=== PATIENT | male | born 1950 | race Caucasian/White ===

== ENCOUNTER 2016-12-02 13:13 | Emergency (ER) | payer OTHER ==
[~2016-12-02] VITALS: Ht 180.3 cm; Wt 86.2 kg
[~2016-12-02 13:13] MED LIST: AMLODIPINE BESY10 M1 PO; ASPIRIN EC81 M1 PO; CALCIUM + D SO1 EACH PO; FLOMAX0.4 M1 PO; FOSAMAX PLUS D1 EAC1 PO; KRILL OIL500 MG PO; MULTIPLE VITAM1 EAC2 PO; NASONEX0.05 MG/Ac NAS; NEXIUM 40MG40 MG PO; PREDNISONE10 MG PO; SYMBICORT 80-10.2 GM INH; TESSALON PERLE100 MG PO
--- NOTE | 2016-12-02 13:46 | ED SKIN/ALLERGY COMPLAINT ---
History of Present Illness General Chief Complaint: Dyspnea (COPD, CHF, Other) Stated Complaint: SOB, "ITCHY ALL OVER" Source: patient Exam Limitations: no limitations Vital Signs & Intake/Output Vital Signs & Intake/Output Vital Signs Date Time Temp Pulse Resp B/P Pulse O2 O2 Flow FiO2 Ox Delivery Rate 12/02 1522 97.0 72 18 136/86 98 Room Air Room Air 12/02 1501 96.7 77 18 135/81 97 Room Air 12/02 1316 97.7 119 20 119/78 97 Room Air ED Intake and Output 12/03 0000 12/02 1200 Intake Total Output Total Balance Patient 190 lb Weight Allergies Coded Allergies: Penicillins (Severe, ANAPHYLAXIS 12/02/16) nut - unspecified (RASH 12/02/16) Reconcile Medications Alendronate Sodium/Vitamin D3 (Fosamax Plus D 70 MG-2,800 Iu) 70 MG-2,800 UNIT TABLET 1 TAB PO QSAT BONE (Reported) Amlodipine Besylate (Amlodipine) 10 MG TABLET 1 TAB PO DAILY BP (Reported) Aspirin (Ecotrin) 81 MG TABLET.DR 1 TAB PO DAILY HEART HEALTH (Reported) Budesonide/Formoterol Fumara (Symbicort 80-4.5 Mcg Inhaler) 80 MCG/4.5 MCG PUF 2 PUFF INH BID PRN DYSPNEA (Reported) Calcium/Vitamin D (Calcium + D) (Unknown Strength) TAB (Unknown Dose) PO BID SUPPLEMENT (Reported) Dexlansoprazole (Dexilant) 60 MG CAP.BP 1 CAP PO DAILY GI (Reported) Dutasteride (Avodart) 0.5 MG CAPSULE 1 CAP PO DAILY PROSTATE (Reported) Fluticasone Propionate (Flovent Hfa) 110 MCG/ACTUATION AER.W.ADAP 2 PUF INH BID BREATHING PROBLEMS (Reported) Krill Oil ([facility] [facility] Krill Oil) 500 MG SGL 1 SGL PO DAILY SUPPLEMENT (Reported ) Multivitamin (Multiple Vitamins) 1 EACH TABLET 1 TAB PO DAILY SUPPLEMENT ( Reported) Tamsulosin Hydrochloride (Flomax) 0.4 MG CAP.ER.24H 1 CAP PO QPM PROSTATE ( Reported) Triage Note: PT HAVING ALLERGIC REACTION TO NUTS STATES HE HAS NOT HAD THIS REACTION TO NUTS IN THE PAST. PT FACE RED AND IS ITCHY. Triage Nurses Notes Reviewed? yes Onset: Abrupt Duration: minute(s):, constant, continues in ED Timing: recent history Severity: moderate, severe No Modifying Factors: none HPI: 66-year-old male drove him here to the emergency room for rash and difficulty breathing that began shortly after eating a gluten-free hamburger. Patient reports that this is happened to him before. Patient is diffusely itchy and has a rash all over the place. Denies any tongue swelling. Patient reports that he felt like he was getting mildly short of breath. Denies any chest pain. Previous reaction recently this past summer. Patient carries an EpiPen normally. Denies any other associated symptoms. (HAYDEE COHEN) Past History Travel History Traveled to [place] past 21 day No Medical History Any Pertinent Medical History? see below for history Cardiovascular: hypertension Gastrointestinal: GERD Surgical History Surgical History: non-contributory Psychosocial History What is your primary language Mongolian Tobacco Use: Never used ETOH Use: occasional use Illicit Drug Use: denies illicit drug use Family History Hx Contributory? No (HAYDEE COHEN) Review of Systems Review of Systems Constitutional: Reports: no symptoms. EENTM: Reports: no symptoms. Respiratory: Reports: no symptoms. Cardiovascular: Reports: no symptoms. GI: Reports: no symptoms. Genitourinary: Reports: no symptoms. Musculoskeletal: Reports: no symptoms. Skin: Reports: see HPI. Neurological/Psychological: Reports: no symptoms. Hematologic/Endocrine: Reports: no symptoms. Immunologic/Allergic: Reports: see HPI. All Other Systems: Reviewed and Negative (HAYDEE COHEN) Physical Exam Physical Exam General Appearance: well developed/nourished, mild distress Head: atraumatic Eyes: Bilateral: normal appearance. Ears, Nose, Throat: normal ENT inspection, hearing grossly normal Neck: normal inspection Respiratory: no respiratory distress Cardiovascular: regular rate/rhythm Back: normal inspection Extremities: normal inspection, normal range of motion, no edema Neurologic/Psych: awake, alert, oriented x 3, normal mood/affect Skin: intact Skin Problem Location: generalized Skin Problem Character: erythematous/patchy Lymphatic: no anterior cervical anna (HAYDEE COHEN) Progress Differential Diagnosis: abscess/cellulitis, allergic reaction, anaphylaxis, angioedema, asthma, contact dermatitis, drug reaction, erythema multiforme Plan of Care: Orders Procedure Date/time Status Telemetry/Lumber Bearer 12/02 1322 Active EKG 12/02 1314 Active Departure Departure Disposition: HOME OR SELF CARE Condition: Stable Clinical Impression Primary Impression: Allergic reaction Referrals: ENMANUEL ROMERO MD (PCP/Family) Additional Instructions: Return to the emergency room immediately if any shortness of breath. Benadryl as needed at home.. carry your EpiPen with the. Return to the emergency room immediately if any other concerns worsening symptoms. Please go over all results of today's visit with your primary care doctor. Contact your primary care doctor to let them know you were here in the emergency room. There may be nonspecific findings which may not be related to your visit today here in the emergency room but may require further evaluation and chronic monitoring by your primary care doctor. If you had a laceration today the chance of foreign body always remains. You should follow-up with your primary care doctor for recheck in 3-5 days for a wound check. If you had an x-ray done there is a chance that a fracture could have been missed on initial read and you should follow-up with your primary care doctor for repeat x-rays if symptoms persist. If your blood pressure was elevated here in the emergency room please have rechecked by her primary care doctor within the next 48 hours by your primary care doctor. If you were prescribed a narcotic here in the emergency room or any type of controlled substances you're not allowed to drive while taking this medication or operate any type of heavy machinery. Narcotics can make you feel lightheaded dizziness nausea and can cause constipation. You may need to pepper picker a stool softener. Thank you for choosing [facility] emergency room. Please return to the emergency room immediately if you have any other concerns worsening of symptoms. Departure Forms: Customer Survey General Discharge Information Comments 12/02/2016 3:54:48 PM Patient clinically looks well. Patient reevaluated multiple times. Patient wants to go home. Return to emergency room immediately if any other concerns. Patient has no evidence of angioedema. No respiratory distress here in the emergency. Follow-up with primary care doctor. Consider seeing an search engine optimization specialist. (LEANN DIAZ,HAYDEE) PA/PURCHASING ASSOCIATE Co-Sign Statement Statement: ED Attending supervision documentation- [X] I saw and evaluated the patient. I have also reviewed all the pertinent lab results and diagnostic results. I agree with the findings and the plan of care as documented in the PA's/PURCHASING ASSOCIATE's documentation. [X] I have reviewed the ED Record and agree with the PA's/PURCHASING ASSOCIATE's documentation. [] Additions or exceptions (if any) to the PAs/PURCHASING ASSOCIATE's note and plan are summarized below: [] (GLADIS HOLLIDAY,SCOTT) Critical Care Note Critical Care Note Critical Care Time: 30-74 min (HAYDEE COHEN)
[2016-12-02] MEDS ORDERED: FLOVENT HFA12 G1 INH (14:13)
[2016-12-02] MEDS ORDERED: DEXILANT60 M1 PO (14:13)
[2016-12-02] MEDS ORDERED: AVODART0.5 M1 PO (14:15)
[2016-12-02 15:22] VITALS: BP 136/86
== END 2016-12-02 16:07 ==
LOC: ERH 13:13
DX: T78.40XA Allergy, unspecified, initial encounter (principal); R06.02 Shortness of breath
CPT/HCPCS: 96374; 96375; J1200; J2930

== ENCOUNTER 2017-03-03 17:47 | Emergency (ER) | payer OTHER ==
[~2017-03-03] VITALS: Ht 182.9 cm; Wt 86.2 kg
[~2017-03-03 17:47] MED LIST changes: +AVODART0.5 M1 PO; +DEXILANT60 M1 PO; +FLOVENT HFA12 G1 INH
[2017-03-03] MEDS ORDERED: BENADRYL25 MG PO (18:02)
[2017-03-03] MEDS ORDERED: EPIPEN0.3 MG/0.1 IM (18:02)
--- NOTE | 2017-03-03 18:06 | ED SKIN/ALLERGY COMPLAINT ---
History of Present Illness General Chief Complaint: Allergy Symptoms Stated Complaint: SOB/ALLERGIC REACTION Source: patient Exam Limitations: no limitations Vital Signs & Intake/Output Vital Signs & Intake/Output Vital Signs Date Time Temp Pulse Resp B/P Pulse O2 O2 Flow FiO2 Ox Delivery Rate 03/03 1941 78 16 134/82 98 Room Air 03/03 1826 80 20 132/82 98 Room Air 03/03 1805 Room Air 03/03 1750 97.6 114 18 120/89 98 Room Air Allergies Coded Allergies: Penicillins (Severe, ANAPHYLAXIS 12/02/16) gluten (CELIACS 03/03/17) Reconcile Medications Alendronate Sodium/Vitamin D3 (Fosamax Plus D 70 MG-2,800 Iu) 70 MG-2,800 UNIT TABLET 1 TAB PO QSAT BONE (Reported) Amlodipine Besylate 10 MG TABLET 1 TAB PO DAILY BP (Reported) Aspirin (Ecotrin*) 81 MG TABLET.DR 1 TAB PO DAILY HEART/BLOOD (Reported) Budesonide/Formoterol Fumarate (Symbicort 80-4.5 Mcg Inhaler) 80 MCG-4.5 MCG/ ACTUATION HFA.AER.AD 2 PUF INH BID RESPIRATORY (Reported) Calcium Carb/Vitamin D3/Vit K1 (Calcium + D Soft Chewable Tab) 500 MG CALCIUM-1, 000 UNIT-40 MCG TAB.CHEW 1 TAB PO BID SUPPLEMENT (Reported) Dexlansoprazole (Dexilant) 60 MG CAP.DR.BP 1 CAP PO DAILY GI (Reported) Diphenhydramine HCl (Benadryl) 25 MG CAPSULE 1 CAP PO AD PRN ALLERGIES ( Reported) Dutasteride (Avodart) 0.5 MG CAPSULE 1 CAP PO DAILY PROSTATE (Reported) Epinephrine (Epipen) 0.3 MG/0.3 ML AUTO.INJCT 0.3 MG IM AD PRN ALLERGIC REACTION (Reported) Epinephrine (Epipen 2-Florencio) 0.3 MG/0.3 ML AUTO.INJCT 1 INJ IM ONCE PRN ANAPHYLAXIS USE ONLY FOR SIGNIFICANT ALLERGIC REACTIONS DIFFICULTY BREATHING OR ANAPHYLAXIS Famotidine (Pepcid) 20 MG TABLET 1 TAB PO DAILY ALLERGIC REACTION Fluticasone Propionate (Flovent Hfa) 110 MCG/ACTUATION AER.W.ADAP 2 PUF INH BID BREATHING PROBLEMS (Reported) Krill Oil (Unknown Strength) CAPSULE (Unknown Dose) PO DAILY SUPPLEMENT ( Reported) Multivitamin (Multiple Vitamins) 1 EACH TABLET 1 TAB PO DAILY SUPPLEMENT ( Reported) Prednisone 10 MG TABLET 1 TAB PO BID ALLERGIC REACTION Tamsulosin HCl (Flomax) 0.4 MG CAP.ER.24H 1 CAP PO DAILY PROSTATE (Reported) Triage Note: PT TO TRIAGE COMPLAINS OF LAST 45 MINUTES ALLERGIC REACTION, STATES THAT HE HAD A GLUTEN FREE KIND BAR AT 1315. STATES THAT ABOUT 45 MINUTES AGO HE STARTED TO BREAK OUT WITH HIVES AND FELT SOB. PT HAS EPI PEN AND USED IT ABOUT 30 MINUTES AGO. PT NOTED WITH REDNESS , WHISCH HE STATES IS SUN BURN, PT ITCHING AND STATES THAT HE HAS HIVES. Triage Nurses Notes Reviewed? yes Onset: Abrupt Duration: constant Timing: single episode today Severity: moderate Severity Numbers: 5 HPI: Patient is a 66-year-old male with a past medical history of seasonal allergies, hypertension who presents to emergency room stating that 1 hour prior to arrival after being outside for approximately one hour in getting in his car to return home. Acute onset of upper body torso and face urticaria redness and itching sensation and allergic reaction symptoms. Patient states that he gets symptoms like this in the past quite frequently however he denies any specific etiology or allergen exposure. Denies any food intake prior to onset of symptoms. Patient does state that he took 1 tablet of Benadryl and did inject an EpiPen to the right lateral gluteal region prior to arrival. Patient denies any shortness of breath tongue swelling lip swelling cough. Denies any new medications. (ELMA WASSERMAN) Past History Travel History Traveled to [place] past 21 day No Medical History Any Pertinent Medical History? see below for history EENT: NONE Cardiovascular: hypertension Respiratory: NONE Gastrointestinal: GERD Hepatic: NONE Renal: NONE Musculoskeletal: NONE Psychiatric: NONE Endocrine: NONE Blood Disorders: NONE Cancer(s): NONE Surgical History Surgical History: non-contributory Psychosocial History What is your primary language Italian Tobacco Use: Never used ETOH Use: denies use Illicit Drug Use: denies illicit drug use Family History Hx Contributory? No (ELMA WASSERMAN) Review of Systems Review of Systems Constitutional: Reports: no symptoms. EENTM: Reports: no symptoms. Respiratory: Reports: no symptoms. Cardiovascular: Reports: no symptoms. GI: Reports: no symptoms. Genitourinary: Reports: no symptoms. Musculoskeletal: Reports: no symptoms. Skin: Reports: see HPI, change in skin color. Neurological/Psychological: Reports: no symptoms. Hematologic/Endocrine: Reports: see HPI. Immunologic/Allergic: Reports: no symptoms. All Other Systems: Reviewed and Negative (ELMA WASSERMAN) Physical Exam Physical Exam General Appearance: no apparent distress, alert Comments: Well-developed well-nourished person in no acute distress HEENT: Normal EENT exam, extraocular motion intact, no nystagmus. Pupils equally round and reactive to light and accommodation. Nose is atraumatic. External auditory canal and Tympanic membranes clear. Pharynx normal. No swelling or edema. No pharyngeal swelling no lip swelling no tongue swelling Neck: Supple, no lymphadenopathy, normal range of motion without pain or tenderness Back: Nontender, no CVA tenderness. Full range of motion Cardiovascular: Regular rate and rhythms no murmurs rubs or gallops, normal JVP Respiratory: Chest nontender. No respiratory distress.breath sounds clear to auscultation bilaterally No stridor Abdomen: Soft, nontender nondistended, no appreciable organomegaly. Normal bowel sounds. No ascites Extremity: No edema, no calf tenderness to palpation, normal and equal pulses. Neuro: Alert oriented x3, motor sensory normal, Skin: Noted generalized above the waist urticaria erythema Psych: Mood and affect is normal, memory and judgment is normal. (ELMA WASSERMAN) Progress Differential Diagnosis: abscess/cellulitis, allergic reaction, anaphylaxis, angioedema, asthma, contact dermatitis, drug reaction, lyme disease, meningitis/ sepsis, piyriasis rosea, shingles, syphilis/gonococcemia, urticaria Plan of Care: Patient currently has no respiratory compromise EENT exam was unremarkable no anaphylaxis or angioedema noted at this time. Oxygen saturation 98% room air. No stridor 03/03/2017 7:36:41 PM patient was reevaluated and had complete resolution of urticaria currently patient is asymptomatic denies any chest pain shortness of breath tongue swelling lip swelling diaphoresis palpitations. 03/03/2017 8:09:30 PM patient currently is asymptomatic and has complete resolution of his allergic reaction symptoms. Upon discharge patient looks well no apparent distress. Discussed disposition planning with Dr. Roman who agrees (ELMA WASSERMAN) Departure Departure Disposition: HOME OR SELF CARE Condition: Stable Clinical Impression Primary Impression: Urticaria Referrals: ENMANUEL ROMERO MD (PCP/Family) Additional Instructions: As discussed continue [id number] Benadryl as directed for the following 2 days. Given the prescription of Pepcid as directed and the prescription of prednisone as directed for your allergic reaction symptoms. Follow up this week with primary care doctor for referral to an calendar control clerk blood bank. If symptoms worsen return to emergency room. Prescriptions waiting [facility] Begin the prescription of epinephrine pen as directed for severe allergic reactions or anaphylaxis Departure Forms: Customer Survey General Discharge Information Prescriptions: Current Visit Scripts Famotidine (Pepcid) 1 TAB PO DAILY #2 TAB Prednisone 1 TAB PO BID #4 TAB Epinephrine (Epipen 2-Florencio) 1 INJ IM ONCE PRN ANAPHYLAXIS #1 PAC USE ONLY FOR SIGNIFICANT ALLERGIC REACTIONS DIFFICULTY BREATHING OR ANAPHYLAXIS (ELMA WASSERMAN) PA/CUPOLA LINER HELPER Co-Sign Statement Statement: ED Attending supervision documentation- [X] I saw and evaluated the patient. I have also reviewed all the pertinent lab results and diagnostic results. I agree with the findings and the plan of care as documented in the PA's/CUPOLA LINER HELPER's documentation. [X] I have reviewed the ED Record and agree with the PA's/CUPOLA LINER HELPER's documentation. [] Additions or exceptions (if any) to the PAs/CUPOLA LINER HELPER's note and plan are summarized below: [] (MÓNICA HOLLIDAY,LATOYA Luke)
[2017-03-03] MEDS ORDERED: PREDNISONE10 M2 PO (19:39)
[2017-03-03] MEDS ORDERED: PEPCID20 M1 PO (19:39)
[2017-03-03 19:41] VITALS: BP 134/82
[2017-03-03] MEDS ORDERED: EPIPEN 2-P0.3 MG/0.3 IM (20:03)
== END 2017-03-03 20:09 ==
LOC: ERH 17:47
DX: L50.9 Urticaria, unspecified (principal)
CPT/HCPCS: 96374; 96375; J1200; J2930

== ENCOUNTER 2018-01-08 14:22 | Emergency (ER) | payer OTHER ==
[~2018-01-08] VITALS: Ht 182.9 cm; Wt 86.2 kg
[~2018-01-08 14:22] MED LIST changes: +BENADRYL25 MG PO; +EPIPEN 2-P0.3 MG/0.3 IM; +EPIPEN0.3 MG/0.1 IM; +PEPCID20 M1 PO; +PREDNISONE10 M2 PO
[2018-01-08 14:26] VITALS: BP 145/79
== END 2018-01-08 18:12 | disposition admitted as inpatient to this hospital (09) ==
LOC: ERH 14:22
DX: L29.9 Pruritus, unspecified (principal)